=== PATIENT | female | born 2000 | race Two or more races ===

== ENCOUNTER 2023-11-09 13:58 | Emergency (ER) | payer OTHER ==
[2023-11-09 14:04] VITALS: BP 101/73; PULSE 77; RESP 18; TEMP 98.5; BMI 16.1
== END 2023-11-09 15:16 | disposition home or self-care (01) ==
LOC: JERFT 13:58
DX: S60.111A Contusion of right thumb with damage to nail, initial encounter (principal); W23.1XXA Caught, crushed, jammed, or pinched between stationary objects, initial encounter
CPT/HCPCS: 73140-TC-RT-FY; 99283-25

== ENCOUNTER 2023-11-10 08:32 | Emergency (ER) | payer OTHER ==
[2023-11-10 08:39] VITALS: BP 109/77; PULSE 82; RESP 16; TEMP 98.4; BMI 16.1
[2023-11-10] MEDS ORDERED: IBUPROFEN 600 MG TABLET (FP) PO ONE (08:42)
[2023-11-10] MEDS: IBUPROFEN 600 MG TABLET (FP) PO ONE (08:44)
== END 2023-11-10 09:03 | disposition home or self-care (01) ==
LOC: JERFT 08:32
PROC: 0HQQXZZ Repair Finger Nail, External Approach (ICD-10-PCS; principal; 2023-11-10)
DX: S60.111A Contusion of right thumb with damage to nail, initial encounter (principal); W23.0XXA Caught, crushed, jammed, or pinched between moving objects, initial encounter
CPT/HCPCS: 99282-25